=== PATIENT | female | born 1985 | race Caucasian/White ===

== ENCOUNTER 2025-05-15 08:26 | Outpatient (REF) | payer OTHER, SELFPAY ==
--- OUTSIDE RECORDS SUMMARY | 2025-05-15 08:48 | XMS_ITS | Encounter Summary ---
Author Organization [employer] Address [address] [facility] 7[address] [place] [address] Care Team Providers Care Service Plumber Name Role Phone Nohemi Campa MD Primary Care Provider [phone] Encounter Details Date Type Department Care Team ([facility] Contact Info) Description 01/23/2023 Orders Only [facility] MEDICINE [address] [place] [address] Summer Goodman LPN Social History Tobacco Use Types Packs/Day Years Used Date Smoking Tobacco: Never Assessed Comments Unknown Sex and Gender Information Value Date Recorded Sex Assigned at Female 05/12/2022 10:20 AM EDT Legal Sex Female 10:20 AM EDT Gender Identity Female 05/12/2022 10:20 AM EDT Sexual Orientation Straight 05/12/2022 10 :20 AM EDT COVID-19 Exposure Response Date Recorded In the last 10 days, have yo u been in contact with someone who was confirmed or suspected to have Coronavirus/COVID-19? No / Unsure 01/02/2023 10:44 AM EDT documented as of this encounter Plan of Treatment Upcoming Encounters Date Type Department Care Team ([facility] Contact Info) Description 05/18/2025 1:30 PM EST Office Visit [facility]C MED & PEDS [address] [place] [address] Nohemi Campa MD [address] [place] [address] documented as of this encounter Visit Diagnoses Not on filedocumented in this encounter Care Teams Service Plumber Relationship Specialty Start Date End Date Nohemi Campa MD [address] [place] [address] PCP - General Family Medicine 09/09/21 documented as of this encounter
--- OUTSIDE RECORDS SUMMARY | 2025-05-15 08:48 | XMS_ITS | Encounter Summary ---
Author Organization [facility] Address [address] [place] [address] Phone Care Team Providers Care Home Appliance Tech Name Role Phone Disha Hernandez MD Primary Care Provider [phone] Encounter Details Date Type Department Care Team (Late st Contact Info) Description 02/26/2017 Conversion Encounter [facility] [place] [address] [place] [address] Social History Tobacco Use Types Packs/Day Years Used Date Smoking Tobacco: Never Assessed Comments Unknown Sex and Gender Information Value Date Recorded Sex Assigned at Not on file Legal Sex Female 4:41 PM EDT Gender Identity Not on file Sexual Orientation Not on file documented as of this encounter Plan of Treatment Not on file documented as of this encounter Visit Diagnoses Not on filedocumented in this encounter Care Teams Home Appliance Tech Relationship Specialty Start Date End Date Disha Hernandez MD [address] [place] [address] PCP - General 02/20/17 documented as of this encounter
--- OUTSIDE RECORDS SUMMARY | 2025-05-15 08:48 | XMS_ITS | Clinical Summary ---
Author Organization [facility] Address [address] [place] [address] Phone Care Team Providers Care Audio Production Instructor Name Role Phone Disha Hernandez MD Primary Care Provider [phone] Immunizations Immunization Administration Dates Next Due DTP 08/12/1992, 9,06/11/1988,04/11,02/07/1988 HPV, Quadrivalent 06/15/2007,03/25/2007 Hep B, ped/adol 01/13/2000,09/06/1999,07/30/1999 Hib (HbOC) 07/12/1989 IPV 08/12/1992, 9,04/11/1988,02/06 Influenza, injectable, trivalent 06/15/2007 MMR 07/30/1999,04/16/1989 Meningococcal Conj (Menactra) MCV4P 03/04/2006 Td (adult) (MBL), 2 Lf tetan us toxoid, PF, adsorbed 07/30/1999 Tdap 03/25/2007 Family History Relation Name Status Comments Other No family histo ry of Elevated cholesterol, Family history of Diabetes mellitus, No family history of Developmental dislocation of hip, No family history of Deafness, Family history of Asthma, No family history of ADD/ADHD, No family history of Sudden /HI under age 55, No family history of Seizure disorder, No family history of Autism, Family history of Migraines, Family history of Obesity Social History Tobacco Use Types Packs/Day Years Used Date Smoking Tobacco: Never Assessed Comments Unknown Sex and Gender Information Value Date Recorded Sex Assigned at Not on file Legal Sex Female 4:41 PM EDT Gender Identity Not on file Sexual Orientation Not on file Plan of Treatment Health Maintenance Due Date Last Done Comments Varicella Vaccines (1 of 2 - 13+ 2-dose series) 12/09/2000 HPV Vaccines (3 - 3-dose series) 09/23/2007 06/15/2007, 03/25/2007 DTaP,Tdap,and Td Vaccines (7 - Td or Tdap) 03/25/2017 03/25/2007, 07/30/1999, 08/12/1992, Additional history exists Influenza Vaccines (#1) 2025 06/15/2007 COVID-19 Vaccine ( season) 2025 HIB Vaccines Completed 07/12/1989 IPV Vaccines Completed 08/12/1992, 06/14, 04/11/1988, Additional history exists MMR Vaccines Completed 07/30/1999, 04/16/1989 Hepatitis B Vaccines Completed 01/13/2000, 09/06/1999, 07/30/1999 Meningococcal Vaccine Completed 03/04/2006 Hepatitis A Vaccines Aged Out No long er eligible based on patient's age to complete this topic Men B Vaccine Aged Out No longer elig ible based on patient's age to complete this topic Pneumococcal Vaccine Aged Out No long er eligible based on patient's age to complete this topic Care Teams Audio Production Instructor Relationship Specialty Start Date End Date Disha Hernandez MD [address] [facility] [place] [address] PCP - General 02/20/17
--- OUTSIDE RECORDS SUMMARY | 2025-05-15 08:48 | XMS_ITS | Encounter Summary ---
Author Organization [employer] Address [address] [place] [address] [address] [place] [address] Care Team Providers Care Aviation Project Engineer Name Role Phone Nohemi Campa MD Primary Care Provider [phone] Reason for Visit * Reason Comments Med Refill Encounter Details Date Type Department Care Team ([facility] Contact Info) Description 03/27/[address] [facility] MED & PEDS [address] [place] [address] Nohemi Campa MD [address] [place] [address] Attention deficit hyperactivity disorder (ADHD), unspecified ADHD type Social History Tobacco Use Types Packs/Day Years Used Date Smoking Tobacco: Never Assessed Comments Unknown Sex and Gender Information Value Date Recorded Sex Assigned at Female 05/12/2022 10:20 AM EDT Legal Sex Female 10:20 AM EDT Gender Identity Female 05/12/2022 10:20 AM EDT Sexual Orientation Straight 05/12/2022 10 :20 AM EDT documented as of this encounter Plan of Treatment Upcoming Encounters Date Type Department Care Team ([facility] Contact Info) Description 05/18/2025 1:30 PM EST Office Visit [facility] CHC MED & PEDS [address] [place] [address] Nohemi Campa MD [address] [place] [address] documented as of this encounter Visit Diagnoses Diagnosis Attention deficit hyperactivity disorder (ADHD), unspecified ADHD type documented in this encounter Care Teams Aviation Project Engineer Relationship Specialty Start Date End Date Nohemi Campa MD [address] [place] [address] PCP - General Family Medicine 09/09/21 documented as of this encounter
--- OUTSIDE RECORDS SUMMARY | 2025-05-15 08:48 | XMS_ITS | Encounter Summary ---
Author Organization [employer] Address [address] [place] [address] 7 [place] [address] Care Team Providers Care Battery Container Tester Aluminum Name Role Phone Nohemi Campa MD Primary Care Provider [phone] Reason for Visit * Reason Comments Med Refill Encounter Details Date Type Department Care Team ([facility] Contact Info) Description 04/29/2023 Refill [facility] MED & PEDS [address] [place] [address] Harman Spears MD [address] [place] [address] Attention deficit hyperactivity disorder (ADHD), unspecified ADHD [...] Upcoming Encounters Date Type Department Care Team ([facility] Contact Info) Description 05/18/2025 1:30 PM EST Office Visit [facility] CHC MED & PEDS [address] [place], [place] [phone] Nohemi Campa MD [address] [place] [address] documented as of this encounter Visit Diagnoses Diagnosis Attention deficit hyperactivity disorder (ADHD), unspecified ADHD type documented in this encounter Care Teams Battery Container Tester Aluminum Relationship Specialty Start Date End Date Nohemi Campa MD [address] [place] [address] PCP - General Family Medicine 09/09/21 documented as of this encounter
--- OUTSIDE RECORDS SUMMARY | 2025-05-15 08:48 | XMS_ITS | Encounter Summary ---
Author Organization [employer] Address [address] [place] [address] 7 [place] [address] Care Team Providers Care Oiling Machine Operator Name Role Phone Nohemi Campa MD Primary Care Provider [phone] Reason for Visit * Reason Comments Med Refill Encounter Details Date Type Department Care Team ([facility] Contact Info) Description 04/11/2025 Refill [facility] MED & PEDS [address] [place] [address] Nohemi Campa MD [address] [place] [address] Attention deficit hyperactivity disorder (ADHD), unspecified ADHD [...] Upcoming Encounters Date Type Department Care Team ([facility] Contact Info) Description 05/18/2025 1:30 PM EST Office Visit [facility] CHC MED & PEDS [address] [place] [address] Nohemi Campa MD [address] [place] [address] documented as of this encounter Visit Diagnoses Diagnosis Attention deficit hyperactivity disorder (ADHD), unspecified ADHD type documented in this encounter Care Teams Oiling Machine Operator Relationship Specialty Start Date End Date Nohemi Campa MD [address] [place] [address] PCP - General Family Medicine 09/09/21 documented as of this encounter
--- OUTSIDE RECORDS SUMMARY | 2025-05-15 08:49 | XMS_ITS | Encounter Summary ---
Author Organization [employer] Address [address] [facility] 7t [place] [address] Care Team Providers Care Senior Payroll Specialist Name Role Phone Nohemi Campa MD Primary Care Provider [phone] Reason for Visit * Reason Onset Date Comments Med Refill 08/19/2023 Encounter Details Date Type Department Care Team (Late Contact Info) Description 08/19/2023 Refill [facility] MEDICINE [address] [place] [address] Nohemi Campa MD [address] [place] [address] Attention deficit hyperactivity disorder (ADHD), unspecified ADHD [...] AM EDT documented as of this encounter Miscellaneous Notes * Telephone Encounter - Waylon Sanchez - 08/19/2023 2:59 PM EST TC from pt requesting medication refill. Medications needing refill: amphetamine-dextroamphetamine XR (Adderall XR) 20 MG 24 hr capsule To be sent to: [facility] documented in this encounter Plan of Treatment Upcoming Encounters Date Type Department Care Team (Late Contact Info) Description 05/18/2025 1:30 PM EST Office Visit [facility] CHC MED & PEDS [address] [place] [address] Nohemi Campa MD [address] [place] [address] documented as of this encounter Visit Diagnoses Diagnosis Attention deficit hyperactivity disorder (ADHD), unspecified ADHD type documented in this encounter Care Teams Senior Payroll Specialist Relationship Specialty Start Date End Date Nohemi Campa MD [address] [place] [address] PCP - General Family Medicine 09/09/21 documented as of this encounter
--- OUTSIDE RECORDS SUMMARY | 2025-05-15 08:49 | XMS_ITS | Encounter Summary ---
Author Organization [employer] Address [address] [place] [address] 7 [place] [address] Care Team Providers Care Compounder Sterile Products Name Role Phone Nohemi Campa MD Primary Care Provider [phone] Reason for Visit * Reason Comments Med Refill Encounter Details Date Type Department Care Team ([facility] Contact Info) Description 03/03/2025 Refill [facility] MED & PEDS [address] [place] [address] Nohemi Campa MD [address] [place] [address] Attention deficit hyperactivity disorder (ADHD), unspecified ADHD [...] Upcoming Encounters Date Type Department Care Team ([facility] Contact Info) Description 05/18/2025 1:30 PM EST Office Visit [facility] CHC MED & PEDS [address] [place] [address] Nohemi Campa MD [address] [place] [address] documented as of this encounter Visit Diagnoses Diagnosis Attention deficit hyperactivity disorder (ADHD), unspecified ADHD type documented in this encounter Care Teams Compounder Sterile Products Relationship Specialty Start Date End Date Nohemi Campa MD [address] [place] [address] PCP - General Family Medicine 09/09/21 documented as of this encounter
--- OUTSIDE RECORDS SUMMARY | 2025-05-15 08:49 | XMS_ITS | Clinical Summary ---
Author Organization [facility] Address [address] [place] [address] Phone Care Team Providers Care Wing Scorer Name Role Phone Pcp, Unknown Primary Care Provider Unavailabl e Allergies No known active allergies Medications dextroamphetamin e-amphetamine (ADDERALL) 20 mg Tab tablet Take 20 mg by mouth daily. Active drospirenone-eth inyl estradiol (MISHA) 3-0.02 mg per tablet Take 1 tablet by mouth daily. Active Active Problems Problem Noted Date Diagnosed Date ASCUS with positive high risk HPV cervical 12/23 Immunizations Immunization Administration Dates Next Due DTP 08/12/1992, 9,06/11/1988,04/11,02/07/1988 HPV,quadrivalent 10/19/2014,06/15/2007, 7 Hepatitis B 01/13/2000,09/06/1999,07/30/1999 Hib,HbOC 07/12/1989 INFLUENZA, SPLIT VIRUS, TRIV ALENT W/ PRESERVATIVE IM 06/15/2007 IPV 08/12/1992, 9,04/11/1988,02/06 Influenza Split (Incl. Purif ied Surface Antigen) 04/25/2013 MMR 07/30/1999,04/16/1989 Meningococcal MCV4P 03/04/2006 Td (adult),2 Lf Tetanus Toxo id, PF, Adsorbed 07/30/1999 Tdap 06/25/2017,03/25/2007 Family History Medical History Relation Comments Diabetes Father Breast cancer Maternal Aunt Diabetes Paternal Aunt Breast cancer Paternal Grandmother Relation Status Comments Father Maternal Aunt Paternal Aunt Paternal Grandmother Social History Tobacco Use Types Packs/Day Years Used Date Smoking Tobacco: Never Smokeless Tobacco: Never Alcohol Use Standard Drinks/Week Comments Yes 0 (1 standard drink = 0.6 oz pur e alcohol) occasionally Education Answer Date Recorded Are you interested in more education? Not on lisa e 11/07/2022 Are you concerned about learning? Not on file 11/07/2022 No 11/07/2022 No 11/07/2022 Digital Access Answer Date Recorded No 12/06/2022 No 12/06/2022 No 12/06/2022 Reliable internet access at home? Not on file 12/06/2022 Device with a working camera? 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 Not on file Not on file Last Filed Vital Signs Vital Sign Reading Time Taken Comments Blood Pressure 116/86 12/23/2018 10:12 AM EDT Pulse - - Temperature - - Respiratory Rate - - Oxygen Saturation - - Inhaled Oxygen Concentration - - Weight 69.7 kg (153 lb 9.6 oz) 12/23/2018 10:12 AM EDT Height 158.8 cm (5' 2.5 ) 12/23/2018 10:12 AM ED T Body Mass Index 27.65 12/23/2018 10:12 AM EDT Plan of Treatment Health Maintenance Due Date Last Done Comments DEPRESSION SCREENING 1999 HEPATITIS C SCREENING 12/09/2005 HIV ONE-TIME SCREENING (18-6 5 YEARS) 12/09/2005 PAP SMEAR 09/29/2019 09/28/2018 INFLUENZA VACCINE (#1) 2025 3, 06/15/2007 COVID-19 VACCINE (2 - 2024-2 6 season) 2025 02/23/2021 Adult Td,Tdap Booster 06/25/2027 06/25/2017 , 03/25/2007, 07/30/1999 HIB VACCINES Completed 07/12/1989 MENINGOCOCCAL VACCINES (ACWY) Completed 03/04/2006 SMOKING STATUS SCREENING (On ce After 26 Yrs) Completed 12/23/2018 HEPATITIS A VACCINES Aged Out No long er eligible based on patient's age to complete this topic MENINGOCOCCAL VACCINES (B) Aged Out N o longer eligible based on patient's age to complete this topic PNEUMOCOCCAL VACCINES (0-49 years) Aged Out No longer eligible b ased on patient's age to complete this topic Medical Devices Not on file Procedures Procedure Name Priority Date/Time Associated Diagnosis Comments PAP SMEAR FOR RESULT ENTRY ONLY Routine 09/28/2018 from Last 3 Months or Most Recently Relevant to Health Maintenance Results * PAP SMEAR FOR RESULT ENTRY ONLY (09/28/2018) Pap smear ASCUS pap w/pos HPV Historical Provider MD HEALTH MAINTENANCE Final Result from Last 3 Months or Most Recently Relevant to Health Maintenance Insurance O O HMO O HMO O O O [facility] Address: [place] [id number] Care Teams Wing Scorer Relationship Specialty Start Date End Date Pcp, Unknown PCP - General 12/03/18 Additional Source Comments The information contained in this document represents components of the legal health record. It is not the complete legal health record.[facility]
--- OUTSIDE RECORDS SUMMARY | 2025-05-15 08:49 | XMS_ITS | Encounter Summary ---
Author Organization [employer] Address [address] [place] [address] 7 [place] [address] Care Team Providers Care Sign Hanger Name Role Phone Nohemi Campa MD Primary Care Provider [phone] Reason for Visit * Reason Comments Med Refill Encounter Details Date Type Department Care Team ([facility] Contact Info) Description 01/22/2024 Refill [facility] MED & PEDS [address] [place] [address] Maximo Hyde MD [address] [place] [address] Attention deficit hyperactivity disorder (ADHD), unspecified ADHD [...] Upcoming Encounters Date Type Department Care Team ([facility] Contact Info) Description 05/18/2025 1:30 PM EST Office Visit [facility] CHC MED & PEDS [address] [place], [place] [phone] Nohemi Campa MD [address] [place] [address] documented as of this encounter Visit Diagnoses Diagnosis Attention deficit hyperactivity disorder (ADHD), unspecified ADHD type documented in this encounter Care Teams Sign Hanger Relationship Specialty Start Date End Date Nohemi Campa MD [address] [place] [address] PCP - General Family Medicine 09/09/21 documented as of this encounter
--- OUTSIDE RECORDS SUMMARY | 2025-05-15 08:49 | XMS_ITS | Encounter Summary ---
Author Organization [employer] Address [address] [place] [address] 7 [place] [address] Care Team Providers Care Restaurant Mgr Name Role Phone Nohemi Campa MD Primary Care Provider Reason for Visit * Reason Comments Med Refill Encounter Details Date Type Department Care Team ([facility] Contact Info) Description 03/11/2024 Refill [facility] MED & PEDS [address] [place] [address] Nohemi Campa MD [address] [place], [place] [phone] Social History Tobacco Use Types Packs/Day Years [...] Upcoming Encounters Date Type Department Care Team ([facility] Contact Info) Description 05/18/2025 1:30 PM EST [facility] MED & PEDS [address] [place] [address] Nohemi Campa MD [address] [place], [place] [phone] documented as of this encounter Visit Diagnoses Not on filedocumented in this encounter Care Teams Restaurant Mgr Relationship Specialty Start Date End Date Nohemi Campa MD [address] [place] [address] PCP - General Family Medicine 09/09/21 documented as of this encounter
--- OUTSIDE RECORDS SUMMARY | 2025-05-15 08:49 | XMS_ITS | Encounter Summary ---
Author Organization [facility] Address [address] [place] [address] Phone Care Team Providers Care Unemployment Claims Adjudicator Name Role Phone Disha Hernandez MD Primary Care Provider Encounter Details Date Type Department Care Team (Late st Contact Info) Description 11/30/2009 Documentation [facility] Medicine [address] [place] [address] Family Medicine, Physician [address] [place], [place] [id number] Social History Tobacco Use Types Packs/Day Years [...] on filedocumented in this encounter Care Teams Unemployment Claims Adjudicator Relationship Specialty Start Date End Date Disha Hernandez MD [address] [place], [place] [address] PCP - General 02/20/17 documented as of this encounter
--- OUTSIDE RECORDS SUMMARY | 2025-05-15 08:49 | XMS_ITS | Encounter Summary ---
Author Organization [employer] Address [address] [facility] 7t [place] [address] Care Team Providers Care Airline Flight Attendant Name Role Phone Nohemi Campa MD Primary Care Provider [phone] Reason for Visit * Reason Onset Date Comments Med Refill 12/23/2023 Encounter Details Date Type Department Care Team ([facility] st Contact Info) Description 12/23/2023 Telephone [facility] MEDICINE [address] [place] [address] oNhemi Campa MD [address] [place], [place] [phone] Med Refill Social History Tobacco Use Types Packs/Day Years Used Date Smoking Tobacco: Never Assessed Comments Unknown Sex and Gender Information Value Date Recorded Sex Assigned at Female 05/12/2022 10:20 AM EDT Legal Sex Female 10:20 AM EDT Gender Identity Female 05/12/2022 10:20 AM EDT Sexual Orientation Straight 05/12/2022 10 :20 AM EDT documented as of this encounter Miscellaneous Notes * Telephone Encounter - Rosa Son LPN - 12/23/2023 9:36 AM EDT Medication pended to provider. * Telephone Encounter - Jeanette García - 12/23/2023 9:32 AM EDT TC from pt requesting medication refill. Medications needing refill : amphetamine-dextroamphetamine XR (Adderall XR) 20 MG 24 hr capsule To be sent to: [facility] [place], [place] - [address] [facility] documented in this encounter Plan of Treatment Upcoming Encounters Date Type Department Care Team ([facility] st Contact Info) Description 05/18/2025 1:30 PM EST Office Visit [facility] MED & PEDS [address] [place] [address] Nohemi Campa MD [address] [place] [address] documented as of this encounter Visit Diagnoses Not on filedocumented in this encounter Care Teams Airline Flight Attendant Relationship Specialty Start Date End Date Nohemi Campa MD [address] [place] [address] PCP - General Family Medicine 09/09/21 documented as of this encounter
--- OUTSIDE RECORDS SUMMARY | 2025-05-15 08:49 | XMS_ITS | Encounter Summary ---
Author Organization [employer] Address [address] [place] [address] 7 [place] [address] Care Team Providers Care Antenna Specialist Name Role Phone Nohemi Campa MD Primary Care Provider [phone] Encounter Details Date Type Department Care Team (Late Contact Info) Description 11/24/2022 Orders Only [facility] MED & PEDS [address] [place] [address] Savannah Hendrix LPN Social History Tobacco Use Types Packs/Day [...] 1:30 PM EST Office Visit [facility] MED & PEDS [address] [place] [address] Nohemi Campa MD [address] [place] [address] documented as of this encounter Visit Diagnoses Not on filedocumented in this encounter Care Teams Antenna Specialist Relationship Specialty Start Date End Date Nohemi Campa MD [address] [place] [address] PCP - General Family Medicine 09/09/21 documented as of this encounter
--- OUTSIDE RECORDS SUMMARY | 2025-05-15 08:49 | XMS_ITS | Encounter Summary ---
Author Organization [employer] Address [address] [place] [address] 7 [place] [address] Care Team Providers Care Roller Shop Utility Worker Name Role Phone Nohemi Campa MD Primary Care Provider [phone] Reason for Visit * Reason Comments Med Refill Encounter Details Date Type Department Care Team ([facility] Contact Info) Description 04/10/2025 Refill [facility] MED & PEDS [address] [place] [address] Nohemi Campa MD [address] [place] [address] Attention deficit hyperactivity disorder (ADHD), unspecified ADHD [...] Upcoming Encounters Date Type Department Care Team ([facility] Contact Info) Description 05/18/2025 1:30 PM EST Office Visit [facility] MED & PEDS [address] [place] [address] Nohemi Campa MD [address] [place] [address] documented as of this encounter Visit Diagnoses Diagnosis Attention deficit hyperactivity disorder (ADHD), unspecified ADHD type documented in this encounter Care Teams Roller Shop Utility Worker Relationship Specialty Start Date End Date Nohemi Campa MD [address] [place] [address] PCP - General Family Medicine 09/09/21 documented as of this encounter
--- OUTSIDE RECORDS SUMMARY | 2025-05-15 08:49 | XMS_ITS | Encounter Summary ---
Author Organization [employer] Address [address] [facility] 7 [place] [address] Care Team Providers Care Construction Director Name Role Phone Nohemi Campa MD Primary Care Provider [phone] Reason for Visit * Reason Comments Pre-visit Planning Pre visit planning L VM Encounter Details Date Type Department Care Team ([facility] Contact Info) Description 05/10/2025 Patient Outreach [facility] MEDICINE [address] [place] [address] Nohemi Campa MD [address] [place] [address] Pre-visit Planning (Pre visit planning LVM ) Social History Tobacco Use Types Packs/Day Years Used Date Smoking Tobacco: Never Assessed Comments Unknown Sex and Gender Information Value Date Recorded Sex Assigned at Female 05/12/2022 10:20 AM EDT Legal Sex Female 10:20 AM EDT Gender Identity Female 05/12/2022 10:20 AM EDT Sexual Orientation Straight 05/12/2022 10 :20 AM EDT documented as of this encounter Progress Notes * Michael Javier - 05/10/2025 11:04 AM EDT CC Michael Hi placed outbound call to patient to complete pre-visit planning. No answer at this time.Patient name and were not confirmed. CC left voicemail requesting return call. Direct contact information provided. documented in this encounter Plan of Treatment Upcoming Encounters Date Type Department Care Team ([facility] Contact Info) Description 05/18/2025 1:30 PM EST Office Visit [facility] MED & PEDS [address] [place] [address] Nohemi Campa MD [address] [place] [address] documented as of this encounter Visit Diagnoses Not on filedocumented in this encounter Care Teams Construction Director Relationship Specialty Start Date End Date Nohemi Campa MD [address] [place] [address] PCP - General Family Medicine 09/09/21 documented as of this encounter
--- OUTSIDE RECORDS SUMMARY | 2025-05-15 08:49 | XMS_ITS | Encounter Summary ---
Author Organization [employer] Address [address] [facility] 7t [place] [address] Care Team Providers Care Transplant Case Manager Name Role Phone Nohemi Campa MD Primary Care Provider [phone] Reason for Visit * Reason Onset Date Comments Med Refill 07/23/2022 Encounter Details Date Type Department Care Team ([facility] Contact Info) Description 07/23/2022 Telephone [facility] MEDICINE [address] [place], [place] [phone] Nohemi Campa MD [address] [place], [place] [id number] Med Refill Social History Tobacco Use Types [...] encounter Miscellaneous Notes * Telephone Encounter - Sae Garcia - 07/23/2022 10:10 AM EST Tc from pt requesting med refill ( Adderall xr 20 mg documented in this encounter Plan of Treatment Upcoming Encounters Date Type Department Care Team ([facility] Contact Info) Description 05/18/2025 1:30 PM EST Office Visit [facility] MED & PEDS [address] [place], [place] [phone] Nohemi Campa MD [address] [place] [address] documented as of this encounter Visit Diagnoses Not on filedocumented in this encounter Care Teams Transplant Case Manager Relationship Specialty Start Date End Date Nohemi Campa MD [address] [place] [address] PCP - General Family Medicine 09/09/21 documented as of this encounter
--- OUTSIDE RECORDS SUMMARY | 2025-05-15 08:49 | XMS_ITS | Encounter Summary ---
Author Organization [employer] Address [address] [facility] 7t [place] [address] Care Team Providers Care Milling Machinist Name Role Phone Nohemi Campa MD Primary Care Provider [phone] Reason for Visit * Reason Onset Date Comments Med Refill 09/17/2023 Encounter Details Date Type Department Care Team ([facility] st Contact Info) Description 09/17/2023 Telephone [facility] MEDICINE [address] [place] [address] Nohemi Campa MD [address] [place] [address] Med Refill Social History Tobacco Use Types [...] Telephone Encounter - Rosa Son LPN - 09/18/2023 9:56 AM EST Medication pended to PCP. * Telephone Encounter - Jeanette García - 09/17/2023 12:09 PM EST TC from pt requesting medication refill. Medications needing refill : amphetamine-dextroamphetamine XR (Adderall XR) 20 MG 24 hr capsule To be sent to: [facility] - [place], [place] - [address] [facility] documented in this encounter Plan of Treatment Upcoming Encounters Date Type Department Care Team ([facility] st Contact Info) Description 05/18/2025 1:30 PM EST Office Visit [facility] MED & PEDS [address] [place] [address] Nohemi Campa MD [address] [place] [address] documented as of this encounter Visit Diagnoses Not on filedocumented in this encounter Care Teams Milling Machinist Relationship Specialty Start Date End Date Nohemi Campa MD [address] [place] [address] PCP - General Family Medicine 09/09/21 documented as of this encounter
--- OUTSIDE RECORDS SUMMARY | 2025-05-15 08:49 | XMS_ITS | Clinical Summary ---
Author Organization [employer] Address [address] [facility] 7t [place] [address] Care Team Providers Care Copying Machine Mechanic Name Role Phone Nohemi Campa MD Primary Care Provider [phone] Allergies No known active allergies Medications MISHA 3-0.02 MG tablet TAKE ONE TABLET BY MOUTH ONCE DAILY 28 tablet 12 023 Active Vit-Fe Fumarate-FA ( Vitamins) 28-0.8 MG tablet TAKE ONE TABLET BY MOUTH EVERY DAY 90 tablet 5 023 Active Vit-Fe Fumarate-FA ( Vitamins) 28-0.8 MG tablet take 1 tab orally daily 022 Active drospirenone-eth inyl estradiol (Anika, Ocella) 3-0.03 MG tablet TAKE 1 TABLET BY MOUTH EVERY DAY 84 tablet 025 Active Adderall XR 20 MG 24 hr capsuleIndicatio ns:Attention deficit hyperactivity disorder (ADHD), unspecified ADHD type TAKE ONE CAPSULE BY MOUTH EVERY DAY 28 capsule 025 Active albuterol (2.5 MG/3ML) 0.083% nebulizer solution inhale 3 milliliter by nebulization route 4 times every day prn as needed 020 Active albuterol (ProAir HFA) 108 (90 Base) MCG/ACT inhaler Inhale 2 puffs every 4 (four) hours. 020 Active fexofenadine (Itzel Allergy) 180 MG tablet Take 1 tablet by mouth at bed time. 021 Active fluticasone (Flonase) 50 MCG/ACT nasal spray Administer 1 spray into each nostril Once per day. 16 g 5 025 Active fluticasone (Flonase) 50 MCG/ACT nasal spray INSERT ONE SPRAY IN EACH NOSTRIL EVERY DAY 16 g 5 024 2024 Discontinued(R eorder (will not trigger notification to Pharmacy)) guaiFENesin (Mucinex) 600 MG 12 hr tablet Take 1 tablet by mouth every 12 (twelve) hours. 020 2024 Discontinued(T herapy completed) Active Problems Problem Noted Date Diagnosed Date ASCUS with positive high risk HPV cervical 12/23 Attention deficit hyperactivity disorder 013 Low back pain 04/25/2013 Encounters Date Type Department Care Team Description 05/10/2025 Patient Outreach [address] [address] Nohemi Campa MD Pre-visit Planning (Pre visit planning LVM ) 05/02/2025 9:00 AM EDT Telemedicine [facility] MED & PEDS [address] [place] [address] Nohemi Campa MD Abnormal uterine bleeding (Primary Dx); Attention deficit hyperactivity disorder (ADHD), combined type 05/02/2025 Travel 05/01/2025 Telephone [facility] MED & PEDS [address] [place] [address] Nohemi Campa MD Chart Prep 04/14/2025 Telephone [facility] MED & PEDS [address] [place] [address] Nohemi Campa MD Appointment Request 04/13/[address] [address] Nohemi Campa MD chart prep 04/13/[address] [address] Nohemi Campa MD chart prep 04/12/2025 Orders Only [facility] MED & PEDS [address] [place] [address] Nohemi Campa MD Attention deficit hyperactivity disorder (ADHD), unspecified ADHD type 04/12/2025 Refill [facility] MED & PEDS [address] [place] [address] Nohemi Campa MD Attention deficit hyperactivity disorder (ADHD), unspecified ADHD type 04/11/2025 Refill [facility] MED & PEDS [address] [place] [address] Nohemi Campa MD Attention deficit hyperactivity disorder (ADHD), unspecified ADHD type 04/11/2025 Telephone [facility] MED & PEDS [address] [place] [address] Nohemi Campa MD Med Refill 04/10/2025 Refill [facility] MED & PEDS [address] [place] [address] Nohemi Campa MD Attention deficit hyperactivity disorder (ADHD), unspecified ADHD type 03/03/2025 Orders Only [facility] MED & PEDS [address] [place] [address] Nohemi Campa MD Attention deficit hyperactivity disorder (ADHD), unspecified ADHD type 03/03/2025 Refill [facility] MED & PEDS [address] [place] [address] Alejandra Oglesby MD Attention deficit hyperactivity disorder (ADHD), unspecified ADHD type 03/03/2025 Refill [facility] MED & PEDS [address] [place] [address] Nohemi Campa MD Attention deficit hyperactivity disorder (ADHD), unspecified ADHD type from Last 3 Months Immunizations Immunization Administration Dates Next Due DTP 08/12/1992, 9,06/11/1988,04/11,02/07/1988 HPV, Quadrivalent 10/19/2014,06/15/2007,03/25/20 07 Hep B, Adolescent or Pediatric 01/13/2000,1999,07/30/1999 Hib (HbOC) 07/12/1989 IPV 08/12/1992, 9,04/11/1988,02/06 Influenza, IIV3, injectable 06/15/2007 Influenza, Split (incl. katie fied surface antigen) 04/25/2013 MMR 07/30/1999,04/16/1989 Meningococcal MCV4P ACYW-135 03/04/2006 Meningococcal MPSV4 03/04/2006 OPV, Trivalent 08/12/1992, 9,04/11/1988,02/06 TD (adult), 2 Lf tetanus tox oid, preservative free, adsorbed 07/30/1999 Tdap 06/25/2017,03/25/2007 Social History Tobacco Use Types Packs/Day Years Used Date Smoking Tobacco: Never Assessed Comments Unknown Intention Date Recorded Not sure of desire to become (f inding) 05/02/2025 Sex and Gender Information Value Date Recorded Sex Assigned at Female 05/12/2022 10:20 AM EDT Legal Sex Female 10:20 AM EDT Gender Identity Female 05/12/2022 10:20 AM EDT Sexual Orientation Straight 05/12/2022 10 :20 AM EDT Last Filed Vital Signs Vital Sign Reading Time Taken Comments Blood Pressure 130/80 01/02/2023 11:09 AM EDT Pulse 83 01/02/2023 11:09 AM EDT Temperature 36.6 C (97.9 F) 01/02/2023 11:09 AM EDT Respiratory Rate 16 01/02/2023 11:09 AM EDT Oxygen Saturation 99% 01/02/2023 11:09 AM EDT Inhaled Oxygen Concentration - - Weight 68.9 kg (152 lb) 05/02/2025 9:11 AM EDT h ome scale Height 157.5 cm (5' 2 ) 01/02/2023 11:09 AM EDT Body Mass Index 27.8 01/02/2023 11:09 AM EDT Plan of Treatment Upcoming Encounters Date Type Department Care Team (Late st Contact Info) Description 05/18/2025 1:30 PM EST Office Visit [facility] MED & PEDS [address] [place] [address] Nohemi Campa MD [address] [place] [address] Health Maintenance Due Date Last Done Comments Depression Screening 1987 HIV Screening 1987 SDOH Screening 1987 Disability Screening 1987 Alcohol/Substance Use Screening 1999 Tobacco Screening 1999 Hepatitis C Screening 12/09/2005 Pap Smear 12/09/2008 Cervical Cancer Screening 09/29/2023 HPV/Cotest 09/29/2023 09/28/2018, 04/07/2017 COVID-19 Vaccine (2 - season) 2025 02/23/2021 Influenza Vaccine (#1) 2025 04/25/2013, 2006 Family Planning (PISQ) 05/02/2026 05/02/2025 DTaP/Tdap/Td Vaccines (8 - Td or Tdap) 06/25/2027 06/25/2017, 03/25/2007, 07/30/1999, Additional history exists Zoster Vaccines (1 of 2) 12/09/2037 RSV Patients and Patients Aged 60 years or older (1 - 1-dose 75+ series) 12/09/2062 HIB Vaccines Completed 07/12/1989 IPV Vaccines Completed 08/12/1992, 07/15, 07/12/1989, Additional history exists Hepatitis B Vaccines Completed 01/13/2000, 09/06/1999, 07/30/1999 Meningococcal Vaccine Aged Out 03/04/2006, 006 No longer eligible based on patient's age to complete this topic HPV Vaccines Completed 10/19/2014, 10/2006, 03/25/2007 Hepatitis A Vaccines Aged Out No long er eligible based on patient's age to complete this topic Meningococcal B Vaccine Aged Out No l onger eligible based on patient's age to complete this topic Pneumococcal Vaccine: Pediatrics (0 to 5 Years) and At-Risk Patients (6 to 49) Years Aged Out No longer eligible based on patient's age to complete this topic RSV under 20 months Aged Out No longe r eligible based on patient's age to complete this topic Rotavirus Vaccines Aged Out No longer eligible based on patient's age to complete this topic Procedures Procedure Name Priority Date/Time Associated Diagnosis Comments DWAYNE HISTORICAL HPV MRNA E6/E7 Routine 09/28/2018 3:52 PM EDT from Last 3 Months or Most Recently Relevant to Health Maintenance Results * (ABNORMAL) HPV mRNA E6/E7 (09/28/2018 3:52 PM EDT) HPV mRNA E6/E7 DETECTED (AA) NOT DETECTED [facility] Comment: This test was performed using the APTIMA(R) HPV Assay ([employer] This assay detects E6/E7 viral messenger RNA (mRNA) from 14 high-risk HPV types (16,18,31,33,35,39,45,51, 52,56,58,59,66,68). For additional information please refer to: http://education.[employer]/faq/CCN372j2 (This link is being provided for informational/ educational purposes only.) The analytical performance characteristics of this assay have been determined by [employer] [place], [place]. The modifications have not been cleared or approved by the FDA. This assay has been validated pursuant to the CLIA regulations and is used for clinical purposes. Test Performed by [facility], [facility], [address] [place] [address] Scott Amador M.D., Ph.D., Director of Laboratories , CLIA [id number] Please note: Effective 03/24/2016, HPV testing will be performed using [employer]'s APTIMA test which targets mRNA. Detecting mRNA instead of DNA, as in older methods, offers significant improvements in specificity. 09/28/2018 3:52 PM EDT Brooke Anand CNM HISTORICAL/NON ORDERABLE LABS Final Result [facility] [address] from Last 3 Months or Most Recently Relevant to Health Maintenance Insurance [facility] , [address] [place] [address] [place] [address] [place] [address] [place] [id number] Care Teams Copying Machine Mechanic Relationship Specialty Start Date End Date Nohemi Campa MD [address] [place] [address] [place] [address] PCP - General Family Medicine 09/09/21
[2025-05-15 14:11] LABS: MANUAL DIFF FLAG NO
[2025-05-15 14:14] LABS: Hematocrit 40.0 % (37.0-47.0); Hemoglobin 13.1 g/dl (12.0-16.0); Imm Gran Abs Auto 0.03 X10*3/uL (0.00-0.03); Imm Gran Pct Auto 0.4 % (0.0-0.4); Lymphocytes Absolute Auto 3.6 X10*3/uL (1.2-4.9); Mean Corpuscular HGB Conc 32.8 g/dl (31.0-35.0); Mean Corpuscular Hemoglobin 31.7 pg (27.0-33.0); Mean Corpuscular Volume 96.9 fL (80.0-98.0); NRBC Abs Auto 0.000 X10*3/uL (0.0-0.012); NRBC Pct Auto 0.0 /100WBC (0.0-0.2); Platelet Count 289 X10*3/uL (160-400); Red Blood Count 4.13 X10*6/uL (4.20-5.50); White Blood Count 7.5 X10*3/uL (4.8-10.8)
[2025-05-15 14:29] LABS: Alanine Aminotransferase 14 U/L (0-31); Albumin Level 4.2 g/dL (3.5-5.0); Alkaline Phosphatase 39 U/L (39-117); Anion Gap 8 (12-20); Aspartate Amino Transferase 19 U/L (5-31); Blood Urea Nitrogen 10 mg/dL (9-16); Calcium 8.6 mg/dL (8.4-10.2); Carbon Dioxide 28 mmol/L (22-29); Chloride 108 mmol/L (96-108); Cholesterol 178 mg/dL (<200); Estimated Glomerular Filt Rate > 60; HDL Cholesterol 53 mg/dL (>40); Magnesium 2.2 mg/dL (1.6-2.6); Potassium 4.4 mmol/L (3.3-5.1); Sodium 140 mmol/L (135-145); Total Protein 6.7 g/dL (6.5-8.0); Triglycerides 82 mg/dL (<150)
[2025-05-15 14:58] LABS: Folate 5.6 ng/mL (> or = 4.0); Vitamin B12 223 pg/mL (200-900)
== END 2025-05-15 08:27 | disposition home or self-care (01) ==
LOC: HO.CHCLDS 08:26
PROVIDERS: Visit Provider Pediatrics
DX: F90.2 Attention-deficit hyperactivity disorder, combined type (principal); N93.9 Abnormal uterine and vaginal bleeding, unspecified; Z13.29 Encounter for screening for other suspected endocrine disorder; Z13.6 Encounter for screening for cardiovascular disorders
CPT/HCPCS: 36415; 80048; 80061; 80076; 82306; 82607; 82746; 83735; 84443; 85025